=== PATIENT | male | born 1960 | race Caucasian/White ===

== ENCOUNTER → 2017-01-06 11:12 | Outpatient (CLI) | payer MEDICARE | END | disposition home or self-care (01) | LOC: D.CT 11:00 → EDBD 11:12 → D.CT 11:12 | DX: L25.3 Unspecified contact dermatitis due to other chemical products (principal) ==

== ENCOUNTER → 2018-06-27 15:33 | Outpatient (CLI) | payer MEDICARE | END | disposition home or self-care (01) | LOC: D.MRI 15:33 | DX: M54.5 Low back pain (principal) ==